=== PATIENT | male | born 1975 | race Caucasian/White ===

== ENCOUNTER 2018-08-07 18:57 | Emergency (ER) | payer SELFPAY ==
[2018-08-07] MEDS ORDERED: Bacitracin Zinc 1 Packet ONE (20:32)
[2018-08-07] MEDS ORDERED: Adacel (T-DAP) 0.5 ML SYRINGE ONE (20:32)
--- NOTE | 2018-08-07 20:40 | RAD ---
THREE VIEWS LEFT SHOULDER: 08/07/18 HISTORY: Left shoulder pain. FINDINGS: The coracoclavicular and acromioclavicular distances are within normal limits. There is no evidence o f a fracture, dislocation, or other osseous abnormality involving the left shoulder. IMPRESSION: No acute osseous abnormality. POS: [facility]
[2018-08-07] MEDS ORDERED: Ibuprofen 800 MG TAB ONE (21:59)
== END 2018-08-07 21:37 | disposition home or self-care (01) ==
LOC: ERS 18:57
DX: S40.012A Contusion of left shoulder, initial encounter (principal); S60.512A Abrasion of left hand, initial encounter; S60.511A Abrasion of right hand, initial encounter; V22.9XXA Unspecified motorcycle rider injured in collision with two- or three-wheeled motor vehicle in traffic accident, initial encounter
CPT/HCPCS: 90471; 90715